=== PATIENT | male | born 1980 | race African-American/Black ===

== ENCOUNTER 2023-06-19 15:18 | Emergency (ER) | payer MEDICAID ==
[~2023-06-19] VITALS: Ht 170.2 cm; Wt 86.0 kg
[2023-06-19 15:22] VITALS: BP 126/85; PULSE 89; RESP 18; TEMP 98.2; O2SAT 100
== END 2023-06-19 18:21 | disposition left against medical advice (07) ==
LOC: ER 15:18
DX: R53.1 Weakness (principal); M54.9 Dorsalgia, unspecified; Z53.21 Procedure and treatment not carried out due to patient leaving prior to being seen by health care provider